=== PATIENT | female | born 1990 | race Caucasian/White ===

== ENCOUNTER 2019-10-18 12:34 | Inpatient (IN) | payer OTHER ==
--- NOTE | 2019-10-18 18:20 | PR ---
[facility] [address] [place], [place] [address] Signed Progress Notes IP Datetime Report Generated by CPN: 10/18/2019 18:20 PROGRESS NOTES: [id number] Impression: Reassuring Heart Rate Procedures: Artificial ROM Plan: Continue Present Management Informed Consent Obtain: Vaginal Delivery VITAL SIGNS: [id number] Vital Signs: Reviewed VS Notable Details: Inital systolic 143 EXAM: [id number] Dilatation: 3.0 Station: -3 Contractions: Irritability MEMBRANES: [id number] Comments: Pt seen and examined. Doing well. 2nd dose of PCN administered. Discussed IOL and AROM performed without difficulty. Discussed anticipated course of labor. Epidural on demand. Reviewed indications for augmentation w/ pitocin if needed. Pt and understand and agree. FETUS A: [id number] FHR Baseline: 140 Variability: Moderate 6-25bpm Accelerations: 15X15 Decelerations: None FHR Category: Category I Presentation: Vertex Comments on Fetus A: No evidence of metabolic acidosis FETUS B: [id number] Signing Physician: Chip Quiñones DO Copies: ~ *Electronically Signed* 10/18/19 2010 CHIP QUIÑONES DO PATIENT NAME: EMELIA PALOMARES PROGRESS NOTE DATE OF : 88 PHYSICIAN: CHIP QUIÑONES DO RPT #: [id number] REPORT IS CONFIDENTIAL AND NOT TO BE RELEASED WITHOUT AUTHORIZATION
--- NOTE | 2019-10-18 22:00 | PR ---
[facility] [address] [place], [place] [address] Signed Progress Notes IP Datetime Report Generated by MARII: 10/18/2019 22:00 PROGRESS NOTES: [id number] Impression: Normal Progression of Labor; Reassuring Heart Rate Procedures: Intrauterine Pressure Catheter; Sterile Vag Exam Plan: Continue Present Management Informed Consent Obtain: Vaginal Delivery VITAL SIGNS: [id number] Vital Signs: Reviewed VS Notable Details: Inital systolic 143 EXAM: [id number] Dilatation: 4.5 Effacement: 50 Station: -3 Contractions: Irritability MEMBRANES: [id number] Comments: Pt seen and examined. Doing well. CTXs becoming more intense and frequent. Discussed IUPC to monitor contractions closer and aid in titrating pitocin if augmentation is required. Verbal consent obtained. IUPC placed without difficulty. Mother and baby tolerated well. Reviewed anticipated course of labor, indications for augmentation, and epidural on demand. All questions answered FETUS A: [id number] FHR Baseline: 140 Variability: Moderate 6-25bpm Accelerations: 15X15 Decelerations: None FHR Category: Category I Presentation: Vertex Comments on Fetus A: No evidence of metabolic acidosis FETUS B: [id number] Signing Physician: Chip Quiñones DO Copies: ~ *Electronically Signed* 10/18/19 0170 CHIP QUIÑONES DO PATIENT NAME: EMELIA PALOMARES PROGRESS NOTE DATE OF : 88 PHYSICIAN: CHIP QUIÑONES DO [facility] #: [id number] REPORT IS CONFIDENTIAL AND NOT TO BE RELEASED WITHOUT AUTHORIZATION
--- NOTE | 2019-10-18 22:39 | PR ---
[facility] [address] [place], [place] [address] Signed Progress Notes IP Datetime Report Generated by CPN: 10/18/2019 22:39 PROGRESS NOTES: [id number] Impression: Normal Progression of Labor Other Impressions: Possible prolonged deceleration Procedures: Scalp Electrode; Sterile Vag Exam Plan: Continue Present Management Informed Consent Obtain: Vaginal Delivery VITAL SIGNS: [id number] Vital Signs: Reviewed VS Notable Details: Inital systolic 143 EXAM: [id number] Dilatation: 4.5 Effacement: 50 Station: -3 Contractions: Irritability MEMBRANES: [id number] Comments: Pt w/ possible prolonged deceleration. FSE was placed without difficulty but did not trace FHR well. Cords were changed out with no improvement. A second scalp electrode was placed without difficulty and again does not trace well. External heart monitor in use now. Will monitor closely and perform intrauterine rescussitation FETUS A: [id number] FHR Baseline: 140 Variability: Moderate 6-25bpm Accelerations: 15X15 Decelerations: None FHR Category: Category I Presentation: Vertex Comments on Fetus A: No evidence of metabolic acidosis FETUS B: [id number] Signing Physician: Chip Quiñones DO Copies: ~ *Electronically Signed* 10/18/19 2229 CHIP QUIÑONES DO PATIENT NAME: EMELIA PALOMARES PROGRESS NOTE DATE OF : 88 PHYSICIAN: CHIP QUIÑONES DO RPT #: [id number] REPORT IS CONFIDENTIAL AND NOT TO BE RELEASED WITHOUT AUTHORIZATION
--- NOTE | 2019-10-18 22:59 | PR ---
[facility] [address] [place], [place] [address] Signed Progress Notes IP Datetime Report Generated by MARII: 10/18/2019 22:59 PROGRESS NOTES: [id number] Impression: Normal Progression of Labor Other Impressions: Possible prolonged deceleration Procedures: Scalp Electrode; Sterile Vag Exam Plan: Continue Present Management Informed Consent Obtain: Vaginal Delivery; Section Delivery VITAL SIGNS: [id number] Vital Signs: Reviewed VS Notable Details: Inital systolic 143 EXAM: [id number] Dilatation: 6.0 Effacement: 60 Station: -3 Contractions: Irritability MEMBRANES: [id number] Comments: Pt w/ another prolonged deceleration 1-2 minutes. Now in hands/knees and FHT much improved. Reviewed possible etiology of decelerations and management options. FHT now CAT 1 in hands/knees. Would also consider amnioinfusion. Pt very uncomfortable w/ contractions and requesting epidural. Will monitor FHT, possible rapid labor, etc. Again, on multiple exams no evidence of prolapsed cord. Reviewed indications for possible if prolonged deceleration w/ no recovery. Pt and understand and agree w/ plan of care. FETUS A: [id number] FHR Baseline: 140 Variability: Moderate 6-25bpm Accelerations: 15X15 Decelerations: None FHR Category: Category I Presentation: Vertex Comments on Fetus A: No evidence of metabolic acidosis FETUS B: [id number] Signing Physician: Chip Quiñones DO Copies: *Electronically Signed* 10/18/19 4193 CHIP QUIÑONES DO PATIENT NAME: EMELIA PALOMARES PROGRESS NOTE DATE OF : 88 PHYSICIAN: CHIP QUIÑONES DO RPT #: [id number] REPORT IS CONFIDENTIAL AND NOT TO BE RELEASED WITHOUT AUTHORIZATION [facility] [address] [place] [address] Signed ~ *Electronically Signed* 10/18/19 225 CHIP QUIÑONES DO PATIENT NAME: EMELIA PALOMARES PROGRESS NOTE DATE OF : 88 PHYSICIAN: CHIP QUIÑONES DO RPT #: [id number] REPORT IS CONFIDENTIAL AND NOT TO BE RELEASED WITHOUT AUTHORIZATION
--- NOTE | 2019-10-19 00:32 | PR ---
[facility] [address] [place], [place] [address] Signed Progress Notes IP Datetime Report Generated by CPAmberly: 10/19/2019 00:32 PROGRESS NOTES: [id number] Impression: Normal Progression of Labor Other Impressions: Possible prolonged deceleration Procedures: Sterile Vag Exam; Amnio Infusion Plan: Continue Present Management Informed Consent Obtain: Vaginal Delivery; Section Delivery VITAL SIGNS: [id number] Vital Signs: Reviewed VS Notable Details: Inital systolic 143 EXAM: [id number] Dilatation: 6.0 Effacement: 50 Station: -3 Contractions: Irritability MEMBRANES: [id number] Comments: Pt seen and examined. S/P epidural and now comfortable w/ contractions. Occasional variable decelerations w/ continued moderate variability. Detailed cervical exam again shows vertex well applied and no evidence of occult cord prolapse. CTXs inadequate but continued cervical change noted. Per protocol, unable to start pitocin. Pt now rolled to hands/knees position. Will also start amnioinfusion. Anticipate , but did discuss possibility of primary LTCS if indicated. Pt and understand and agree FETUS A: [id number] FHR Baseline: 140 Variability: Moderate 6-25bpm Accelerations: 15X15 Decelerations: None FHR Category: Category I Presentation: Vertex Comments on Fetus A: No evidence of metabolic acidosis FETUS B: [id number] Signing Physician: Chip Quiñones DO Copies: *Electronically Signed* 10/19/19 0032 CHIP QUIÑONES DO PATIENT NAME: EMELIA PALOMARES PROGRESS NOTE DATE OF : 88 PHYSICIAN: QUIÑONESCHIP DO RPT #: [id number] REPORT IS CONFIDENTIAL AND NOT TO BE RELEASED WITHOUT AUTHORIZATION [address] [place], [place] [address] Signed ~ *Electronically Signed* 10/19/19 0032 CHIP QUIÑONES DO PATIENT NAME: EMELIA PALOMARES PROGRESS NOTE DATE OF : 88 PHYSICIAN: CHIP QUIÑONES DO RPT #: [id number] REPORT IS CONFIDENTIAL AND NOT TO BE RELEASED WITHOUT AUTHORIZATION
--- NOTE | 2019-10-19 00:37 | PR ---
[place] [facility] [address] [facility] [place], [place] [address] Signed Progress Notes IP Datetime Report Generated by CPAmberly: 10/19/2019 00:37 PROGRESS NOTES: [id number] Impression: Normal Progression of Labor Other Impressions: Possible prolonged deceleration Procedures: Sterile Vag Exam; Amnio Infusion Plan: Continue Present Management Informed Consent Obtain: Vaginal Delivery; Section Delivery VITAL SIGNS: [id number] Vital Signs: Reviewed VS Notable Details: Inital systolic 143 EXAM: [id number] Dilatation: 6.0 Effacement: 50 Station: -3 Contractions: Irritability MEMBRANES: [id number] Comments: FHT much improved in hands/knees. Will hold amnioinfusion at this time, but will consider initiation if continued variable decelerations FETUS A: [id number] FHR Baseline: 140 Variability: Moderate 6-25bpm Accelerations: 15X15 Decelerations: None FHR Category: Category I Presentation: Vertex Comments on Fetus A: No evidence of metabolic acidosis FETUS B: [id number] Signing Physician: Chip Quiñones DO Copies: ~ *Electronically Signed* 10/19/19 0037 CHIP QUIÑONES DO PATIENT NAME: EMELIA PALOMARES PROGRESS NOTE DATE OF : 88 PHYSICIAN: CHIP QUIÑONES DO RPT #: [id number] REPORT IS CONFIDENTIAL AND NOT TO BE RELEASED WITHOUT AUTHORIZATION
--- NOTE | 2019-10-19 02:25 | PR ---
[facility] [address] [place], [place] [address] Signed Progress Notes IP Datetime Report Generated by CPN: 10/19/2019 02:25 PROGRESS NOTES: [id number] Impression: Reassuring Heart Rate Other Impressions: Slow progression of labor Procedures: Sterile Vag Exam Plan: Augmentation Informed Consent Obtain: Vaginal Delivery; Section Delivery VITAL SIGNS: [id number] Vital Signs: Reviewed VS Notable Details: Inital systolic 143 EXAM: [id number] Dilatation: 7.0 Effacement: 90 Station: -2 Contractions: Irritability MEMBRANES: [id number] Comments: Pt seen and examined. Doing well. Comfortable w/ contractions. FHT reassuring, however contractions continue to be inadequate and minimal cervical change noted. Discussed role of pitocin augmention. Pt and understand and agree. Discussed possiblity of and indications of this. FETUS A: [id number] FHR Baseline: 140 Variability: Moderate 6-25bpm Accelerations: 15X15 Decelerations: None FHR Category: Category I Presentation: Vertex Comments on Fetus A: No evidence of metabolic acidosis FETUS B: [id number] Signing Physician: Chip Quiñones DO Copies: ~ *Electronically Signed* 10/19/19 0225 CHIP QUIÑONES DO PATIENT NAME: EMELIA PALOMARES PROGRESS NOTE DATE OF : 88 PHYSICIAN: CHIP QUIÑONES DO RPT #: [id number] REPORT IS CONFIDENTIAL AND NOT TO BE RELEASED WITHOUT AUTHORIZATION
--- NOTE | 2019-10-20 07:50 | PR ---
[facility] [address] [facility] [place], [place] [address] Signed PP Progress Notes Datetime Report Generated by CPN: 10/20/2019 07:50 SUBJECTIVE: [id number] Pain: Within Normal Limits Nausea/Vomiting: Denies Flatus: Yes Vital Signs: [id number] Vital Signs: Reviewed; Within Normal Limits Cardiovascular: Normal Respiratory: Normal Abdomen/Uterus: Normal Lochia: Normal Vulva/Perineum: Not Done Breasts: Not Done CVA Tenderness: Normal Extremities: Normal Exam Comments: Fundus firm U-2 nontender IMPRESSION/PLAN/PROCEDURES: [id number] Impression: Normal Progression Plan: Continue Present Management Progress Notes: Pt seen and examined. Doing well. Ambulating, voiding, and tolerating full diet. Pain and lochia minimal. well. No questions or concerns. Anticipate d/c home tomorrow. Signing Physician: Chip Quiñones DO Copies: ~ *Electronically Signed* 10/20/19 0750 CHIP QUIÑONES DO PATIENT NAME: EMELIA PALOMARES PROGRESS NOTE DATE OF : 88 PHYSICIAN: CHIP QUIÑONES DO [facility] #: [id number] REPORT IS CONFIDENTIAL AND NOT TO BE RELEASED WITHOUT AUTHORIZATION
--- NOTE | 2019-10-21 08:36 | PR ---
[facility] [address] [facility] [place], [place] [address] Signed PP Progress Notes Datetime Report Generated by CPN: 10/21/2019 08:36 SUBJECTIVE: [id number] Pain: Within Normal Limits Nausea/Vomiting: Denies Flatus: Yes Bowel Movement: No Vital Signs: [id number] Vital Signs: Reviewed; Within Normal Limits Cardiovascular: Normal Respiratory: Normal Abdomen/Uterus: Normal Lochia: Normal Vulva/Perineum: Not Done Breasts: Not Done CVA Tenderness: Normal Extremities: Normal Incision: Not Applicable Progress: Normal Exam Comments: Fundus firm U-2 nontender IMPRESSION/PLAN/PROCEDURES: [id number] Impression: Normal Progression Other Impression: Gestational thrombocytopenia Plan: Discharge Progress Notes: Pt seen and examined. Doing well. Ambulating, voiding, and tolerating full diet. Pain and lochia minimal. well. No fevers/chills or other concerns. Desires d/c home. Reviewed d/c teaching in detail and all questions answered. D/C motrin 800mg TID prn. Reviewed gestational thrombocytopenia and planning CBC in 6 wks. Pt and are moving to the [place] in 1-2 wks. Signing Physician: Chip Quiñones DO Copies: ~ *Electronically Signed* 10/21/19 0836 CHIP QUIÑONES DO PATIENT NAME: EMELIA PALOMARES PROGRESS NOTE DATE OF : 88 PHYSICIAN: CHIP QUIÑONES DO RPT #: [id number] REPORT IS CONFIDENTIAL AND NOT TO BE RELEASED WITHOUT AUTHORIZATION
== END 2019-10-21 09:20 | disposition home or self-care (01) | DRG 807 ==
LOC: FBC 12:34
PROVIDERS: ADMIT Obstetrics & Gynecology
PROC: 10907ZC Drainage of Amniotic Fluid, Therapeutic from Products of Conception, Via Natural or Artificial Opening (ICD-10-PCS; 2019-10-18)
PROC: 10H07YZ Insertion of Other Device into Products of Conception, Via Natural or Artificial Opening (ICD-10-PCS; 2019-10-18)
PROC: 10E0XZZ Delivery of Products of Conception, External Approach (ICD-10-PCS; principal; 2019-10-19)
PROC: 00HU33Z Insertion of Infusion Device into Spinal Canal, Percutaneous Approach (ICD-10-PCS; 2019-10-19)
PROC: 3E0R3BZ Introduction of Anesthetic Agent into Spinal Canal, Percutaneous Approach (ICD-10-PCS; 2019-10-19)
DX: O99.824 Streptococcus B carrier state complicating childbirth (principal); Z37.0 Single live birth; Z3A.40 40 weeks gestation of pregnancy; O99.12 Other diseases of the blood and blood-forming organs and certain disorders involving the immune mechanism complicating childbirth; D69.6 Thrombocytopenia, unspecified; O76 Abnormality in fetal heart rate and rhythm complicating labor and delivery; O69.81X0 Labor and delivery complicated by cord around neck, without compression, not applicable or unspecified; O69.82X0 Labor and delivery complicated by other cord entanglement, without compression, not applicable or unspecified; O99.89 Other specified diseases and conditions complicating pregnancy, childbirth and the puerperium; H91.90 Unspecified hearing loss, unspecified ear
CPT/HCPCS: 01960; 36415; 85027; A9270; J2540; J2590; J2795